=== PATIENT | female | born 1995 | race Caucasian/White ===

== ENCOUNTER 2020-05-30 11:54 | Emergency (ER) | payer OTHER, SELFPAY ==
--- NOTE | ~2020-05-30 | XR_ITS ---
EXAMINATION: XR chest 1V portable DATE: 05/30/2020 13:38 INDICATION: Cough and shortness of breath TECHNIQUE: frontal view of the chest was obtained. COMPARISON: None FINDINGS: The lungs are clear with no focal airspace opacities, pulmonary edema, pleural effusion or pneumothor ax. The cardiomediastinal silhouette is normal. Visualized bones and soft tissues are unremarkable. IMPRESSION: 1. No acute cardiopulmonary disease. Reviewed, dictated and finalized at location A.
[2020-05-30 11:56] VITALS: BP 112/87; PULSE 84; RESP 18; TEMP 36.9; O2SAT 100
[2020-05-30] MEDS: LORazepam (*CRX) 1 MG TABLET PO (13:22)
--- NOTE | 2020-05-30 13:56 | ED.GENADULT ---
HPI - General Adult General Chief complaint: Upper Respiratory Infection Stated complaint: SOB Time Seen by Provider: 05/30/20 12:20 Source: patient and family Mode of arrival: ambulatory Limitations: no limitations History of Present Illness HPI narrative: Patient is a 24-year-old female who presents to emergency department for evaluation of upper respiratory symptoms that began over the last 24 hours with congestion rhinorrhea nonproductive cough and feeling short of breath patient denies fever vomiting diarrhea patient started a new job the day that she began to feel ill patient has not been vaccinated or had COVID-19 on arrival patient in no distress patient does note severe anxiety and states she is also very anxious at this time Related Data Home Medications Medication Instructions Recorded Confirmed desvenlafaxine succinate mg PO 05/30/20 lamotrigine 05/30/20 Allergies Allergy/AdvReac Type Severity Reaction Status Date / Time Penicillins Allergy Hives Verified 05/30/20 12:22 Review of Systems Review of Systems: All systems reviewed & are unremarkable except as noted in HPI and below PMFSH Past Medical History Medical History (Updated 05/30/20 @ 14:01 by Jack Penaloza PA-C) Anxiety Depression Social History Social History (Updated 05/30/20 @ 13:59 by Jack Penaloza PA-C) Smoking status: Never smoker Gender identity (if verbalized by the patient): Female Exam Narrative: Exam Narrative: GENERAL: Well-appearing, well-nourished, and in no acute distress. HEAD: Normocephalic, atraumatic. EYES: PERRLA and EOMI. ENT: Nares clear, no rhinorrhea or epistaxis. Mucous membranes moist. CHEST: Clear to auscultation. No respiratory distress. No wheezes rales or rhonchi HEART: Regular rate and rhythm. No murmur heard. Normal peripheral pulses. EXTREMITIES: Normal range of motion. No edema. SKIN: Warm, dry, no rash. NEURO: No focal deficits. Alert and oriented x3. Cranial nerves II through XII grossly intact PSYCH: Normal mood and affect. Course Course Emergency Course: Patient in the room no distress hemodynamically stable normal vital signs no hypoxemia sick for less than a day no pneumonia on chest x-ray will be tested for Covid will follow with her primary care to get the results noting that she is aware that primary care is the only one that can get the results for her given reasons to return Vital Signs Vital signs: Vital Signs Temperature 98.5 F 05/30/20 11:56 Pulse Rate 84 05/30/20 11:56 Respiratory Rate 18 05/30/20 11:56 Blood Pressure 112/87 05/30/20 11:56 Pulse Oximetry 100 05/30/20 11:56 Temperature 98.5 F 05/30/20 11:56 Pulse Rate 84 05/30/20 11:56 Respiratory Rate 18 05/30/20 11:56 Blood Pressure 112/87 05/30/20 11:56 Pulse Oximetry 100 05/30/20 11:56 Medical Decision Making MDM Narrative Medical decision making narrative: Patient with upper respiratory infection no distress felt appropriate for outpatient reevaluation patient agrees with this plan will be discharged Vital Signs Vital Signs: Vital Signs Temperature 98.5 F 05/30/20 11:56 Pulse Rate 84 05/30/20 11:56 Respiratory Rate 18 05/30/20 11:56 Blood Pressure 112/87 05/30/20 11:56 Pulse Oximetry 100 05/30/20 11:56 Temperature 98.5 F 05/30/20 11:56 Pulse Rate 84 05/30/20 11:56 Respiratory Rate 18 05/30/20 11:56 Blood Pressure 112/87 05/30/20 11:56 Pulse Oximetry 100 05/30/20 11:56 Imaging Data Radiologist's impression: ITS Impressions Chest X-Ray 05/30/20 13:39 IMPRESSION: 1. No acute cardiopulmonary disease. Discharge Plan Discharge Clinical Impression: Upper respiratory infection Patient Disposition: Home, Self-Care Condition: Stable Instructions: Antibiotic Form, COVID-19 (Coronavirus Disease 2019) (ED) Additional Instructions: Follow up with your primary care provider within 2 days set up for ree
[2020-05-30 14:35] VITALS: BP 104/78; PULSE 89; RESP 18; O2SAT 100
[2020-05-31 01:17] LABS: SARS-CoV-2 RNA PCR Negative
== END 2020-05-30 14:35 | disposition home or self-care (01) ==
PROVIDERS: Emergency Medicine Emergency Medical Services; Emergency Provider Emergency Medicine; PCP Family Medicine
DX: J06.9 Acute upper respiratory infection, unspecified (principal); Z20.822 Contact with and (suspected) exposure to COVID-19; F41.9 Anxiety disorder, unspecified; F32.9 Major depressive disorder, single episode, unspecified
CPT/HCPCS: 71045; 99283; A9270; C9803; U0003; U0005

== ENCOUNTER 2020-12-07 20:08 | Emergency (ER) | payer OTHER, SELFPAY ==
--- NOTE | ~2020-12-07 | XR_ITS ---
EXAMINATION: XR chest 2V 12/07/2020 20:32 INDICATION: Chest pain PROCEDURE: 2 view chest COMPARISON: 05/30/2020 FINDINGS: The lungs are clear. The cardiomediastinal silhouette is within normal limits. There are no pleural effusions. There is no pneumothorax suspected. IMPRESSION: 1: NO ACUTE CARDIOPULMONARY DISEASE. Reviewed, dictated and finalized at location A.
--- NOTE | 2020-12-07 20:13 | ECG_ITS ---
Measurements Intervals Sigurd Rate: 94 P: 68 WY: 159 QRS: 50 QRSD: 84 T: 61 QT: 338 QTc: 423 Interpretive Statements SINUS RHYTHM INCOMPLETE RIGHT BUNDLE BRANCH BLOCK BASELINE ARTIFACT- I, II, III, AVR, AVL BORDERLINE ECG Electronically Signed On 12-07-2020 22:59:49 CDT by Armaan Vanegas D.O.
[2020-12-07 20:17] VITALS: BP 129/87; PULSE 98; RESP 14; TEMP 36.7; O2SAT 100
[2020-12-07 20:50] LABS: Basophils Absolute Auto 0.1 K/mm3 (0.0-0.1); Basophils Percent Auto 0.7 % (0.2-1.2); Eosinophils Absolute Auto 0.2 K/mm3 (0-0.3); Eosinophils Percent Auto 2.6 % (0-4.4); Hemoglobin 13.4 g/dL (12.0-15.0); Immature Granulocyte Absolute 0.01 K/mm3 (0.00-0.031); Immature Granulocyte Percent A 0.1 % (0-0.5); Lymphocytes Absolute Auto 2.84 K/mm3 (0.9-3.2); Lymphocytes Percent Auto 38.5 % (18.3-44.2); Mean Corpuscular HGB Conc 32.7 g/dl (32-36); Mean Corpuscular Hemoglobin 30.2 pg (26-34); Mean Corpuscular Volume 92.3 fl (80-100); Mean Platelet Volume 9.6 fl (7.4-10.4); Monocytes Absolute Auto 0.4 K/mm3 (0.1-0.6); Monocytes Percent Auto 5.8 % (2.6-8.5); Neutrophils Absolute Auto 3.9 K/mm3 (1.3-6.7); Neutrophils Percent Auto 52.3 % (45.5-73.1); Platelet Count Result 260 k/mm3 (150-375); Red Blood Count 4.44 M/mm3 (4.2-5.4); Red Cell Distribution Width 12.6 % (11.5-14.5); White Blood Count 7.4 K/mm3 (4.5-10.0)
[2020-12-07 20:59] LABS: Prothrombin Time 12.6 Seconds (11.1-14.7)
[2020-12-07 21:00] LABS: Partial Thromboplastin Time 28.1 SECONDS (22.3-36.8)
[2020-12-07 21:07] LABS: Blood Urea Nitrogen 12 mg/dL (7-17); Calcium 9.3 mg/dL (8.4-10.2); Carbon Dioxide 28 mmol/L (22-30); Chloride 103 mmol/L (98-107); Estimated CRCL calculation 78 ml/min; Estimated Glomerular Filt Rate > 60; Glucose 97 mg/dL (65-110); Potassium 3.9 mmol/L (3.4-5.0)
[2020-12-07 21:12] LABS: Troponin I < 0.012 ng/mL (0.000-0.034)
[2020-12-07 21:17] LABS: Anion Gap 7 mmol/L (8-16); Sodium 138 mmol/L (137-145)
--- NOTE | 2020-12-07 22:28 | ED.CHESTPAIN ---
HPI - Chest Pain General Chief Complaint: Chest Pain Stated Complaint: Chest and side pain Time Seen by Provider: 12/07/20 22:23 Source: patient Mode of arrival: ambulatory Limitations: no limitations History of Present Illness HPI narrative: Patient is a 35-year-old female complaining of bilateral rib pain accompanied by chest pain, across her chest, worse with movement and deep inspiration, 8 out of 10, sharp, nonradiating started today. Patient denies any shortness breath, abdominal pain, nausea, vomiting, diaphoresis, fever or chills. Patient denies any injury to the area. Related Data Home Medications Medication Instructions Recorded Confirmed desvenlafaxine succinate mg PO 05/30/20 lamotrigine 05/30/20 Allergies Allergy/AdvReac Type Severity Reaction Status Date / Time Penicillins Allergy Hives Verified 05/30/20 12:22 Review of Systems Review of Systems: All systems reviewed & are unremarkable except as noted in HPI and below Constitutional: Constitutional: Denies body ache(s), Denies chills, Denies excessive sweating, Denies fatigue, Denies fever(s), Denies headache(s), Denies lethargy, Denies malaise, Denies weakness and Denies weight loss Eyes: Eyes: Denies blurry vision, Denies change in vision and Denies loss of vision ENT: Denies dizziness, Denies ear discharge, Denies headache(s), Denies lip swelling, Denies epistaxis, Denies nasal congestion, Denies neck pain, Denies throat swelling and Denies tongue swelling Cardiovascular: Cardiovascular: Denies diaphoresis, Denies rapid heart rate, Denies edema, Denies irregular heart rhythm, Denies lightheadedness, Denies palpitations, Denies dyspnea and Denies dyspnea on exertion Respiratory: Respiratory: Denies chest congestion, Denies cough, Denies hemoptysis, Denies dyspnea and Denies dyspnea on exertion Gastrointestinal: Gastrointestinal: Denies abdominal pain, Denies melena, Denies hematochezia, Denies diarrhea, Denies nausea, Denies vomiting and Denies hematemesis Musculoskeletal: Musculoskeletal: Denies abnormal gait, Denies deformity, Denies joint swelling, Denies limited range of motion, Denies neck pain and Denies numbness Neurologic: Denies Abnormal speech present, Denies abnormal gait, Denies confusion, Denies dizziness, Denies headache(s), Denies focal weakness, Denies loss of vision, Denies numbness, Denies Other visual disturbances, Denies Sensory deficit (Neuro) and Denies weakness Psychiatric: Psychiatric: Denies confusion, Denies depression, Denies auditory hallucinations, Denies homicidal ideation and Denies suicidal ideation Endocrine: Endocrine: Denies cold intolerance, Denies excessive sweating, Denies fatigue, Denies heat intolerance and Denies palpitations Hematologic/Lymphatic: Hematologic/Lymphatic: Denies easy bleeding and Denies easy bruising Allergic/Immunologic: Allergic/Immunologic: Denies lip swelling, Denies throat swelling and Denies tongue swelling PMFSH Past Medical History Medical History Anxiety Depression Social History Social History Smoking status: Never smoker Gender identity (if verbalized by the patient): Female Exam Const: General: cooperative, healthy appearing, comfortable, no acute distress, well developed, alert and awake; No confusion Orientation/consciousness: oriented to person, oriented to place, oriented to time, patient oriented x3 and No confusion Limitations: no limitations HENMT: Head: normal to inspection, normocephalic and atraumatic Ears: hearing grossly normal bilaterally, TM normal on the right and TM normal on the left General nose exam: Normal external nose present, Normal nares present and No nasal discharge present Face and sinus: normal facial exam Mouth: Yes Normal oral and palatal mucosa present, Yes lip normal, Yes tongue normal and Yes oropharynx normal Throat: posterior
[2020-12-07 22:29] VITALS: BP 131/98; PULSE 85; RESP 17; O2SAT 99
[2020-12-07 23:32] LABS: D Dimer 0.31 ug/mL (<0.48)
[2020-12-08 00:06] VITALS: BP 126/89; PULSE 79; RESP 16; O2SAT 98
== END 2020-12-08 00:28 | disposition home or self-care (01) ==
PROVIDERS: Emergency Medicine; Emergency Provider Emergency Medicine; PCP Family Medicine
DX: R07.89 Other chest pain (principal); F41.9 Anxiety disorder, unspecified; F32.A Depression, unspecified; I45.10 Unspecified right bundle-branch block
CPT/HCPCS: 36415; 71046; 80048; 84484; 85025; 85380; 85610; 85730; 93005; 99284

== ENCOUNTER 2021-05-01 12:52 | Emergency (ER) | payer OTHER, SELFPAY ==
--- NOTE | ~2021-05-01 | XR_ITS ---
XR knee RT min 4V 05/01/2021 13:32 INDICATION: Right knee pain PROCEDURE: 4 views right knee COMPARISON: No prior studies for comparison. FINDINGS: Fracture, dislocation or subluxation is not identified. The soft tissues appear within norm al limits. No foreign bodies are identified. IMPRESSION: 1: NO ACUTE BONE OR JOINT ABNORMALITY IDENTIFIED. Reviewed, dictated and finalized at location A.
--- NOTE | 2021-05-01 13:05 | ED.GENADULT ---
HPI - General Adult General Chief complaint: Extremity Injury, Lower Stated complaint: rt knee pain Time Seen by Provider: 05/01/21 13:05 Source: patient Mode of arrival: ambulatory Limitations: no limitations History of Present Illness HPI narrative: 25-year-old female patient presents to the [facility] with complaints of right knee pain. Patient states that she was walking yesterday and felt some crackling to her right knee and started having some pain. Patient states when she got home was going up and down some stairs she felt a pop and instantly started having some numbness and tingling that radiated down to the leg and the foot. Patient states she has been icing it, taking Aleve, elevating it and wrapping it with an Ced wrap. Patient states she is not able to fully extend her knee on the right side. Patient states pain is 7 out of 10 at this time. Related Data Home Medications Medication Instructions Recorded Confirmed desvenlafaxine succinate 100 mg PO DAILY 05/30/20 05/01/21 lamotrigine 100 mg PO DAILY 05/30/20 05/01/21 dextromethorphan-quinidine 1 cap PO BID 05/01/21 05/01/21 [Nuedexta] Allergies Allergy/AdvReac Type Severity Reaction Status Date / Time Penicillins Allergy Hives Verified 05/01/21 13:15 Review of Systems Review of Systems: CONSTITUTIONAL: Denies fever, chills, or sweats. EYES: Denies visual changes, redness, or discharge. ENT: Denies rhinorrhea, congestion, sore throat, or otalgia. CARDIOVASCULAR: Denies chest pain, palpitations, or edema. RESPIRATORY: Denies cough or dyspnea. GASTROINTESTINAL: Denies abdominal pain, nausea, vomiting, or diarrhea. GENITOURINARY: Denies dysuria or hematuria. SKIN: Denies rash or itching. MUSCULOSKELETAL: Denies back pain, joint pain, or myalgia. Positive right knee pain NEUROLOGIC: Denies headache, numbness, or weakness. PSYCHIATRIC: Denies anxiety or depression. [facility] Past Medical History Medical History Anxiety Depression Family History Family History Father Heart disease Depression Sibling ADHD Grandparent Breast cancer Heart disease Social History Social History Smoking status: Never smoker Second hand tobacco smoke exposure: No Alcohol intake: never Substance use: unknown Gender identity (if verbalized by the patient): Female Comments At the time of my signature I agree with nursing past medical history, surgical, social, and family history. There is no relevant family history pertinent to the presenting complaint. Exam Narrative: GENERAL: Well-appearing, well-nourished, and in no acute distress. HEAD: Normocephalic, atraumatic. EYES: PERRLA and EOMI. ENT: Nares clear, no rhinorrhea or epistaxis. Mucous membranes moist. NECK: Supple. No lymphadenopathy CHEST: Clear to auscultation. No respiratory distress. HEART: Regular rate and rhythm. No murmur heard. Normal peripheral pulses. ABDOMEN: Soft, nontender, nondistended, normal active bowel sounds. EXTREMITIES: Patient is able to bear weight and ambulate but has extreme pain pain. No surface trauma, STS, or obvious effusion. No overlying erythema or warmth. The R knee is without obvious asymmetry or deformity when compared to the R/L knee. Patient is able to do deep knee bend with symmetry, fully extend knee, internal and external rotation. No tendernss to palpation of the patella, no effusion or ballottement. No tenderness over the infrapatellar tendon. tenderness over the lateral joint and the lateral tibial plateaus. no tenderness over the proximal fibular head. no tenderness, fullness, or mass of the popliteal fossa. No quadriceps tenderness. No laxity of the ACL, PCL, MCL, or LCL. No collateral ligament laxity to valgus or vargus stress. Negative clemente/drawer sign. Negative Marlyn. Negative Apley compressio
[2021-05-01 13:07] VITALS: BP 115/78; PULSE 99; RESP 18; TEMP 36.9; O2SAT 99
== END 2021-05-01 13:50 | disposition home or self-care (01) ==
PROVIDERS: Emergency Provider Nurse Practitioner Family
DX: M25.561 Pain in right knee (principal); F32.A Depression, unspecified
CPT/HCPCS: 73564; 99213; G0463; L1830

== ENCOUNTER 2021-08-19 11:00 | Outpatient (RCR) | payer OTHER, SELFPAY ==
--- NOTE | 2021-06-25 13:57 | PTOPEVAL ---
PHYSICAL THERAPY INITIAL EVALUATION. Thank you for referring Coleen Carr to [facility].? The patient is scheduled to be seen for therapy? 2x/week for 4 weeks. Please review, sign, date and return this plan of care ROBBY. I agree with and certify that the following plan of care is medically necessary. Referring Physician Date Attending Provider: Rufino Horvath APN *PT Outpatient Evaluation Start: 06/25/21 Evaluation Information Diagnosis Patellofemoral pain Onset ~2 month Additional Evaluation Detail Pt ambulates into the clinic using leslye axillary crutches without bearing any weight through her R LE. Subjective Information Pt states she was walking at Query Text:As Reported By Patient/ work when her knee popped out Family of place. Her x-rays at urgent care after this were negative . She is now 2 months out and does not put any weight through her RLE. She states she cannot stand for long periods of time. Pt states she booty scoots up/down the stairs to her room. Diagnostic Tests X-Rays For This Problem Yes: negative Pain Assessment Right Knee(s) Reported Pain Level 4 Pain Description Crushing Pain Frequency Acute,Intermittent Lowest Pain Intensity 0 Greatest Pain Intensity 8 Pain Aggravating Factors Prolonged Position,Stair Climbing,Walking Lower Extremity Range of Motion General Lower Extremity Range of Motion WFL/Left,WFL/Right Knee Range of Motion Right Knee Flexion Range of Motion - Active 110 Knee Flexion Range of Motion - Passive 140 Knee Extension Range of Motion - Active -4 Knee Range of Motion Comments L knee 0-140 Lower Extremity Muscle Strength Testing Gross Lower Extremity Strength R knee extension 4-/5 R knee flexion 4/5 R hip flexion 4/5 L LE grossly 4+/5 Palpation Assessment Palpation lateral border of the patella Knee Special Tests Salome's Negative Right Anterior Drawer Negative Right Posterior Drawer Negative Right Valgus Stress Test Knee at 0 Degrees Negative Right Valgus Stress Test Knee at 30 Degrees Negative Right Varus Stress Test Knee at 0 Degrees Negative Right Varus Stress Test Knee at 30 Degrees Negative Right Patellofemoral Compression/Grind Test Positive Right Patellofemoral Apprehension Test Positive Right Balance Assessment Jaylon
--- NOTE | 2021-07-23 16:11 | PTOPEVAL ---
PHYSICAL THERAPY PROGRESS REPORT. Thank you for referring Coleen Carr to [facility].? The patient is scheduled to be seen for therapy? 1x/week for 4 weeks. Please review, sign, date and return this plan of care ROBBY. I agree with and certify that the following plan of care is medically necessary. Referring Physician Date Attending Provider: Rufino Horvath APN Evaluation Information Diagnosis Patellofemoral pain Onset ~2 month Subjective Information Pt states she was doing well Query Text:As Reported By Patient/ until she went back to work. Family At work, with modifications, she has to sit for 5hrs without much time or space to stand up and stretch her legs out. She also reports crackling in her knee. Pain Assessment Self Report Pain Assessment Right Knee(s) Reported Pain Level 3 Greatest Pain Intensity 8 Lower Extremity Range of Motion General Lower Extremity Range of Motion WFL/Left,WFL/Right Knee Range of Motion Right Knee Flexion Range of Motion - Active 138 Knee Flexion Range of Motion - Passive 140 Knee Extension Range of Motion - Active 0 Knee Range of Motion Comments L knee 0-140 Lower Extremity Muscle Strength Testing Gross Lower Extremity Strength R knee extension 4/5 R knee flexion 4+ /5 R hip flexion 4/5 L LE grossly 4+/5 Palpation Assessment Palpation medial knee joint line. Decreased lateral patellar glide and decreased superior/ inferior mobility Knee Special Tests Salome's Negative Right Anterior Drawer Negative Right Posterior Drawer Negative Right Valgus Stress Test Knee at 0 Degrees Negative Right Valgus Stress Test Knee at 30 Degrees Negative Right Varus Stress Test Knee at 0 Degrees Negative Right Varus Stress Test Knee at 30 Degrees Negative Right Patellofemoral Compression/Grind Test Positive Right Patellofemoral Apprehension Test Positive Right Balance Assessment Timed Up and Go Test (TUG) (Seconds) 10 Assistive Devices None,Crutches, Axillary Comments Initially: 16s, Partial weight bearing on R LE 07/23/21: 10s, without use of AD 5 Time Sit to Stand Time in Seconds 15 5 Time Sit to Stand Comments Initially: 17s, Without the Query Text:Normative Data: If Greater use of UEs, RLE placed Than 15 Seconds, 74% Increase Risk for anteriorly with a lateral Recurrent Falls weight shift to the left 07/23/21: 15s, RLE placed
--- NOTE | 2021-08-19 11:47 | PTOPEVAL ---
PHYSICAL THERAPY PROGRESS REPORT AND DISCHARGE SUMMARY. Thank you for referring Coleen Carr to [facility].? The patient is to be discharged from skilled physical therapy services at this time. Please review, sign, date and return this plan of care ROBBY. I agree with and certify that the following plan of care is medically necessary. Referring Physician Date Attending Provider: Rufino Horvath APN Evaluation Information Diagnosis Patellofemoral pain Onset ~2 month Subjective Information Pt states her knee is doing Query Text:As Reported By Patient/ fine. She states she is doing Family her exercises less than she should be. Pt states her knee still hurts when she steps weird. She declines pain on the stairs, walking, or standing for prolonged periods of time. Pain Assessment Right Knee(s) Reported Pain Level 2 Greatest Pain Intensity 5 Lower Extremity Range of Motion General Lower Extremity Range of Motion WFL/Left,WFL/Right Knee Range of Motion Right Knee Flexion Range of Motion - Active 140 Knee Flexion Range of Motion - Passive 140 Knee Extension Range of Motion - Active 0 Knee Range of Motion Comments L knee 0-140 Lower Extremity Muscle Strength Testing Gross Lower Extremity Strength leslye hip flexion 5/5 leslye knee flexion/extension 5/5 - no pain with max resistance - full functional squat without deviations Palpation Assessment Palpation no tenderness press Balance Assessment Time Up Go (TUG) Assistive Devices None,Crutches, Axillary Comments Initially: 16s, Partial weight bearing on R LE 07/23/21: 10s, without use of AD 08/19/21: 8s, without the use of AD 5 Time Sit to Stand 5 Time Sit to Stand Comments Initially: 17s, Without the Query Text:Normative Data: If Greater use of UEs, RLE placed Than 15 Seconds, 74% Increase Risk for anteriorly with a lateral Recurrent Falls weight shift to the left 07/23/21: 15s, RLE placed posterior to LLE 08/19/21: 13s, equal weight distribution Gait Assessment Ambulation Assistive Devices None Gait Pattern Assessment Gait Pattern No Deviations/Normal Other Gait Observations decreased gait speed 2 Minute Walk 2 Minute Walk Test Comments initially: 238ft (1.98ft/sec) With Leslye axillary crutches
== END 2021-08-19 14:57 | disposition home or self-care (01) ==
LOC: ANHPT 11:00
PROVIDERS: PCP Physician Assistant; Visit Provider Nurse Practitioner
DX: M25.561 Pain in right knee (principal)
CPT/HCPCS: 97110; 97112; 97116; 97161; 97530

== ENCOUNTER 2021-08-31 12:29 | Outpatient (CLI) | payer SELFPAY ==
--- NOTE | ~2021-08-31 | XR_ITS ---
XR chest 2V DATE: 08/31/2021 13:17 INDICATION: Tietze syndrome. Sternal chest pain. Costochondral junction pain. TECHNIQUE: PA and lateral views COMPARISON: 12/07/2020 PA and lateral chest FINDINGS: Normal heart size. No hilar or mediastinal enlargement. No pulmonary infiltrate or consolid ation, pleural effusion or pulmonary vascular congestion or pneumothorax. IMPRESSION: Negative Reviewed, dictated and finalized at location B. IMPRESSION: Negative
== END 2021-08-31 12:30 | disposition home or self-care (01) ==
PROVIDERS: PCP Physician Assistant; Visit Provider Physician Assistant
DX: N94.0 Mittelschmerz (principal)
CPT/HCPCS: 71046

== ENCOUNTER 2024-09-12 10:06 | Outpatient (CLI) | payer BC, SELFPAY ==
[2024-09-25 18:07] VITALS: BMI 22.7
--- NOTE | 2024-09-25 18:07 | P.SLEEP_ITS ---
Sleep Study - Home Unattended Date of Study: 09/12/24 Ordering Provider: Manjinder Quintanilla APRN Interpreting Provider: Frances Webb, DO Home Sleep Study Type: Watch PAT Height: 1.7 m Weight: 65.771 kg Body Mass Index: 22.7 Neck Circumference (inches): 13.5 [facility]: 0 Reason for Sleep Study Trouble falling and staying asleep Sleep History The patient is a 28-year-old female that had a sleep study ordered by the pulmonary group for evaluation of sleep apnea. The patient admits to excessive daytime sleepiness, trouble falling asleep, and trouble staying asleep. She denies snoring loudly. She denies interruptions in breathing while asleep. She denies choking or gasping at night. She denies having trouble breathing on her back. She does have morning headaches. She does have a dry or sore mouth/throat in the morning. She denies nocturnal heartburn. She denies nocturia. She does have difficulty returning to sleep if she wakes up throughout the night. She does use hypnotics or sedatives. She denies feeling anxious about sleep. She does feel tired or sleepy during the day. She does feel tired in the morning. She denies having the urge to fall asleep during the day. She denies feeling drowsy while driving. She denies sleep paralysis, cataplexy, and hypnagogic/hypnopompic hallucinations. She does clench or grind her teeth. She denies kicking or jerking her legs excessively. She does have a restless feeling in her legs. The restless feeling does not cause the urge to move her legs. It does not get worse with rest or better with activity. It is worse in the evening or at nighttime. It does cause a disturbance in her sleep. She goes to bed at 10 p.m. on workdays and at 11 p.m. on her days off. It takes her 45 minutes to fall asleep. She gets 6 hours of sleep per night. Her sleep is somewhat restorative on days off. She denies taking any planned naps. She denies dream enactment behavior. She denies sleepwalking. She consumes 1 to 2 cups of a caffeinated beverage per day. She denies tobacco and alcohol use. She denies exercising on a regular basis. [facility] Past Medical History Medical History BMI 24.0-24.9, adult PTSD (post-traumatic stress disorder) Depression Anxiety Family History Family History Father Heart disease Depression Hypertension Sibling ADHD Grandparent Breast cancer Heart disease Cervical cancer Mother No problems noted. Social History Social History Smoking status: Never smoker Second hand tobacco smoke exposure: No Alcohol intake: never Substance use: never Substance use type: does not use Do You Feel Safe in your Home?: Yes Lack of Transportation: No Lack of Food: Never True Current Housing: I Have Housing Concerned About Future Housing: No Difficulty Paying Gas/Electric Bills: No Difficulty Paying for Meds: No Currently Unemployed: No Education: Bachelor's Degree Difficulty w/ Childcare or Family Care: No Living arrangements: with family Occupation/Education: occupation Additional occupation/education comments: [employer] Gender identity (if verbalized by the patient): Female Medications Home Medications ?Medication ?Instructions ?Recorded ?Confirmed ?Type desvenlafaxine succinate 100 mg 100 mg PO DAILY 05/30/20 07/18/24 History tablet,extended release 24 hr lamotrigine 100 mg tablet 100 mg PO DAILY 05/30/20 07/18/24 History Goji howard PO 05/30/24 07/18/24 History Iron PO 05/30/24 07/18/24 History Vitamin B12 PO 05/30/24 07/18/24 History lactobacillus combination no.4 3 3,000 mmu cells PO DAILY 05/30/24 07/18/24 History billion cell capsule (Probiotic) lorazepam 0.5 mg tablet 0.5 mg PO ONCE PRN 05/30/24 07/18/24 History norethindrone acetate 1 mg-ethinyl 1 tablet PO DAILY 05/30/24 07/18/24 History estradiol 20 mcg tablet eszopiclone 1 mg tablet 1 mg PO ONCE #1 tablet 07/18/24 07/18/24 Rx Sleep Procedure The sleep study was completed using WatchPAT a technically adequate device with seven channels: peripheral arterial tone, actigraphy, body position, snore, respiratory movement, pulse oximetry, sleep staging, and heart rate. Prior to using the device, the patient received verbal and written instructions for its application and was provided with the help desk phone number for additional telephonic instruction with 24-hour availability of qualified personnel to answer questions. The study was scored using CMS guidelines. Sleep Architecture The total recording time is 8 hrs, 10 min. The total sleep time is 7 hrs, 16 min. Sleep latency is 22 minutes. REM latency is 62 minutes. The patient had 7 episodes of waking. Sleep architecture shows 12.7% deep sleep, 66.6% light sleep, and (as % Total Sleep Time) showed NREM (Light 66.6%; Deep 12.7%), and a 20.6% stage REM. The patient spent 81.9% of total sleep time in the supine position. Sleep efficiency was 88.98. Respiratory Analysis The overall AHI (pAHI 4%:) is 0.7. The overall AHI (pAHI 3%:) is 3.6. The central AHI is 0.3. The AHI was 3.1 in NREM and 5.4 in REM sleep. The AHI was 3.5 in Supine and N/A in Non-supine sleep. Percent of Benny Richardson respirations is 0.0. Oximetry Data The oxygen desaturation index (MARGUERITE 4%:) is 0.7. The mean saturation is 96%, and the lowest saturation is 94%. Time spent with saturation < 88% is 0.0 minutes. Snoring Profile Snoring average intensity is 41 dB. The patient snored above 45 decibels for 6.2 minutes, 1.4% of sleep time. Cardiac Profile The average pulse rate is 77 beats per minutes. The lowest pulse rate is 63 bpm. The highest pulse rate reported is 108 bpm. Atrial fibrillation was not suspected. Premature beats occur <0.1 per minute. Assessment and Plan Assessment and Plan (1) Sleep disturbances: Code(s): G47.9 - Sleep disorder, unspecified Status: Acute Assessment and Plan: The patient had an overall AHI of 0.7 with desaturation down to 94%. This is not consistent with sleep-disordered breathing. If there is further concern for a sleep disorder, I recommend that the patient have a split study with the use of a hypnotic to ensure we obtain enough sleep data. Data The data obtained during this sleep study is adequate for interpretation. Certification This sleep study has been reviewed by a board certified sleep medicine physician.
== END 2024-09-13 10:37 | disposition home or self-care (01) ==
LOC: ANHCSM 10:14
PROVIDERS: PCP Family Medicine; Visit Provider Nurse Practitioner Family
DX: G47.9 Sleep disorder, unspecified (principal)
CPT/HCPCS: 95800

== ENCOUNTER 2024-11-01 08:55 | Emergency (ER) | payer BC, SELFPAY ==
--- OUTSIDE RECORDS SUMMARY | 2024-11-01 08:58 | XMS_ITS | Clinical Summary ---
Author Organization [facility] Office Center Address [address] [place] [address] Care Team Providers Care Contract Associate Name Role Phone Quentin Lei MD Primary Care Provider [phone] Allergies Active Allergy Reactions Criticality Noted Date Comments Penicillin V Potassium Rash Medium 08/09/2018 Medications lamoTRIgine (LaMICtal) 100 mg tablet 1 tablet daily 0 9 Active desvenlafaxine ER (PRISTIQ, KHEDEZLA) 100 mg 24 hr tablet Take 1 tablet by mouth daily 0 9 Active albuterol HFA (PROVENTIL HFA,VENTOLIN HFA,PROAIR HFA) 90 mcg/actuation inhaler INHALE 2 PUFFS BY MOUTH FOUR TIMES DAILY NEEDED FOR SHORTNESS OF BREATH OR WHEEZING 1 Active Nuedexta 20-10 mg capsule Take 1 capsule by mouth 2 (two) times a day 1 Active Lo Loestrin Fe 1 mg-10 mcg (24)/10 mcg (2) tablet Take 1 tablet by mouth daily 1 Active methylPREDNISol one (MEDROL DOSEPACK) 4 mg DosepackIndicat ions:Bilateral hand pain Take as directed on package. 21 tablet 1 Active naproxen (NAPROSYN) 500 mg tablet TAKE 1 TABLET(500 MG) BY MOUTH TWICE DAILY NEEDED FOR PAIN 60 tablet 2 Active Active Problems Problem Noted Date Diagnosed Date Fatigue 08/24/2020 Menorrhagia with irregular cycle 08/24/2020 Bipolar 1 disorder 08/24/2020 Immunizations Immunization Administration Dates Next Due Influenza, Unspecified 12/02/2020,2019(Deferred: Patient Refused) [place] SARS-CoV-2 Monovalen t Vaccination (12+ YRS) 08/05/2020,07/08/2020 Surgical History Surgery Date Site/Laterality Comments WISDOM TOOTH EXTRACTION 02/13/2015 - 02/13/2016 Family History Medical History Relation Name Comments Heart disease Father Valve in heart mutated- had surgery Ovarian cancer Maternal Grandmother No Known Problems Mother No Known Problems Sister 1 Maranda No Known Problems Sister 2 Relation Name Status Comments Father Alive Maternal Grandmother Mother Alive Sister 1 Maranda Alive Sister 2 Alive Social History Tobacco Use Types Packs/Day Years Used Date Smoking Tobacco: Never Smokeless Tobacco: Never Alcohol Use Standard Drinks/Week Comments Never 0 (1 standard drink = 0.6 oz pur e alcohol) AUDIT-C Answer Date Recorded Q1: How often do you have a drink containing alc ohol? Never 08/24/2020 Average Number of Drinks Not on file 021 Q3: How often do you have si x or more drinks on one occasion? Never 08/24/2020 PHQ-2 Answer Date Recorded PHQ-2 Total Score (If total score is 3 or more points, staff should administer the PHQ-9) 0 01/27/2021 Personal Safety Answer Date Recorded Getting School Help Needed Not on file 04/15 Comments Unknown Sex and Gender Information Value Date Recorded Sex Assigned at Not on file Legal Sex Female 12:11 AM SOCIOLOGY TEACHER Gender Identity Female 06/24/2024 8:18 PM CDT Sexual Orientation Choose not to disclose 2024 8:18 PM CDT Obstetrics History Last Filed Vital Signs Vital Sign Reading Time Taken Comments Blood Pressure 114/76 02/02/2021 1:05 PM SOCIOLOGY TEACHER Pulse 102 02/02/2021 1:05 PM SOCIOLOGY TEACHER Temperature 36.3 C (97.3 F) 02/02/2021 1:05 PM SOCIOLOGY TEACHER Respiratory Rate 18 02/02/2021 1:05 PM SOCIOLOGY TEACHER Oxygen Saturation 98% 02/02/2021 1:05 PM SOCIOLOGY TEACHER Inhaled Oxygen Concentration - - Weight 69.3 kg (152 lb 12.8 oz) 02/02/2021 1:05 PM SOCIOLOGY TEACHER Height 167.6 cm (5' 6) 02/02/2021 1:05 PM SOCIOLOGY TEACHER Body Mass Index 24.66 02/02/2021 1:05 PM SOCIOLOGY TEACHER Plan of Treatment Health Maintenance Due Date Last Done Comments Cervical Cancer Screening 1994 Hepatitis C Screening 1994 DTaP/Tdap/Td Vaccine (1 - Tdap) 2005 Varicella Vaccines (1 of 2 - 13+ 2-dose series) 11/21/2007 Hepatitis B Screening 2012 Regular Well Visit/Exam 18-64 2012 HPV Vaccines (1 - 3-dose SCD M series) 2021 Depression Screening 01/27/2022 01/27/2021, 12/09/2020 Covid-19 Vaccine (3 - 2024-2 6 season) 2024 08/05/2020, 07/08/2020 Influenza Vaccine (#1) 2024 12/02/2020 Pneumococcal vaccine <65 Aged Out No longer eligible based on patient's age to complete this topic [facility] H[facility] Care Teams Contract Associate Relationship Specialty Start Date End Date Quentin Lei MD PCP - General Family Medicine 08/09/18
[2024-11-01 09:05] VITALS: BP 104/74; PULSE 84; RESP 18; TEMP 36.2; O2SAT 100
--- NOTE | 2024-11-01 09:18 | ED.GENADULT ---
HPI - General Adult General Chief complaint: Nausea/Vomiting/Diarrhea Stated complaint: nausea/vertigo Time Seen by Provider: 11/01/24 09:17 Source: patient, RN notes reviewed and old records reviewed Mode of arrival: ambulatory Limitations: no limitations History of Present Illness HPI narrative: 28 year old female presents to [facility] with complaints of having nausea starting on Monday evening and has some dizziness when she moves her eyes too much. Patient reports no visual changes, no drainage from eyes or any photophobia. Patient reports that she has chronic sinus issues and has had increase in her sinus drainage and congestion and has been taking Benadryl, Flonase and also Aleve for her symptoms. Patient reports no fevers no vomiting or any diarrhea.Patient reports no pain at this time but continues with nausea today and general malaise. MD complaint: nausea, dizziness, sinus congestion and drainage Onset (ago): day(s) (3 days ago) Severity: moderate Treatments prior to arrival: other (Benadryl, Flonase, and Aleve) Related Data Home Medications ?Medication ?Instructions ?Recorded ?Confirmed ?Last Taken ?Type desvenlafaxine succinate 100 mg 100 mg PO DAILY 05/30/20 11/01/24 Unknown History tablet,extended release 24 hr lamotrigine 100 mg tablet 100 mg PO DAILY 05/30/20 11/01/24 Unknown History Goji howard PO 05/30/24 07/18/24 Unknown History Iron PO 05/30/24 07/18/24 Unknown History Vitamin B12 PO 05/30/24 07/18/24 Unknown History lactobacillus combination no.4 3 3,000 mmu cells PO DAILY 05/30/24 11/01/24 Unknown History billion cell capsule (Probiotic) lorazepam 0.5 mg tablet 0.5 mg PO ONCE PRN anxiety 05/30/24 11/01/24 Unknown History norethindrone acetate 1 mg-ethinyl 1 tablet PO DAILY 05/30/24 11/01/24 Unknown History estradiol 20 mcg tablet Allergies Allergy/AdvReac Type Severity Reaction Status Date / Time Penicillins Allergy Hives Verified 11/01/24 09:01 Review of Systems Review of Systems: CONSTITUTIONAL: Denies fever, chills, or sweats. EYES: Denies visual changes, redness, or discharge. ENT: Reports rhinorrhea, congestion,no sore throat, no otalgia. CARDIOVASCULAR: Denies chest pain, palpitations, or edema. RESPIRATORY: Denies cough or dyspnea. GASTROINTESTINAL: Denies abdominal pain, + nausea, no vomiting, or diarrhea. GENITOURINARY: Denies dysuria or hematuria. SKIN: Denies rash or itching. MUSCULOSKELETAL: Denies back pain, joint pain, or myalgia. NEUROLOGIC: Denies acute headache, numbness, or weakness, some dizziness PSYCHIATRIC: Positive for anxiety or depression. All systems reviewed & are unremarkable except as noted in HPI and below PMFSH Past Medical History Medical History BMI 24.0-24.9, adult PTSD (post-traumatic stress disorder) Depression Anxiety Family History Family History Father Heart disease Depression Hypertension Sibling ADHD Grandparent Breast cancer Heart disease Cervical cancer Mother No problems noted. Social History Social History Smoking status: Never smoker Second hand tobacco smoke exposure: No Alcohol intake: never Substance use: never Substance use type: does not use Do You Feel Safe in your Home?: Yes Lack of Transportation: No Lack of Food: Never True Current Housing: I Have Housing Concerned About Future Housing: No Difficulty Paying Gas/Electric Bills: No Difficulty Paying for Meds: No Currently Unemployed: No Education: Bachelor's Degree Difficulty w/ Childcare or Family Care: No Living arrangements: with family Occupation/Education: occupation Additional occupation/education comments: [employer] Gender identity (if verbalized by the patient): Female Comments At time of signature, agree with nursing past medical, surgical, social and family history. There is no relevant family history pertinent to the presenting complaint Exam Narrative: GENERAL: Well-appearing, well-nourished, and in no acute distress. HEAD: Normocephalic, atraumatic. EYES: PERRLA and EOMI.no nystagmus, no photophobia ENT: Nares clear,positive for rhinorrhea and feelings of congestion to sinuses no epistaxis. Mucous membranes moist. TM's normal with brisk light reflex, throat pink with no tonsil redness or enlargement NECK: Supple. no lymphadenopathy CHEST: Clear to auscultation. No respiratory distress. no cough noted SAO2 100% on room air HEART: Regular rate and rhythm. No murmur heard. Normal peripheral pulses. ABDOMEN: Soft, nontender, nondistended, normal active bowel sounds. EXTREMITIES: Normal range of motion. No edema. SKIN: Warm, dry, no rash. NEURO: No focal deficits. Alert and oriented x3. Course Course Emergency Course: Patient is aware of diagnosis, understands and agrees to treatment plan.? Anticipatory guidance given.? Patient agrees to follow-up as directed and is aware of reasons to seek care at the emergency department. Portions of this record may have been created with voice recognition software Level of Care: Express Care Visit Vital Signs Vital signs: Vital Signs Temperature 36.2 C L 11/01/24 09:05 Pulse Rate 84 11/01/24 09:05 Respiratory Rate 18 11/01/24 09:05 Blood Pressure 104/74 11/01/24 09:05 Pulse Oximetry 100 11/01/24 09:05 Oxygen Delivery Room Air 11/01/24 09:05 Temperature 36.2 C L 11/01/24 09:05 Pulse Rate 84 11/01/24 09:05 Respiratory Rate 18 11/01/24 09:05 Blood Pressure 104/74 11/01/24 09:05 Pulse Oximetry 100 11/01/24 09:05 Oxygen Delivery Room Air 11/01/24 09:05 Reviewed Medical Decision Making MDM Narrative Medical decision making narrative: Exam findings and imaging show no acute concerns or changes; patient is non-toxic appearing and is in no distress.? Patient is appropriate for outpatient treatment and follow-up Differential Diagnosis Differential Diagnosis: nausea, dizziness, viral syndrome, URI, sinus drainage, seasonal allergies Medical Records Medical records reviewed: Yes I reviewed the external patient's medical records. Vital Signs Vital Signs: Vital Signs Temperature 36.2 C L 11/01/24 09:05 Pulse Rate 84 11/01/24 09:05 Respiratory Rate 18 11/01/24 09:05 Blood Pressure 104/74 11/01/24 09:05 Pulse Oximetry 100 11/01/24 09:05 Oxygen Delivery Room Air 11/01/24 09:05 Temperature 36.2 C L 11/01/24 09:05 Pulse Rate 84 11/01/24 09:05 Respiratory Rate 18 11/01/24 09:05 Blood Pressure 104/74 11/01/24 09:05 Pulse Oximetry 100 11/01/24 09:05 Oxygen Delivery Room Air 11/01/24 09:05 reviewed Lab Data Lab results reviewed: Yes I reviewed the patient's lab results. Lab results narrative: covid antigen negative, Influenza A& B negative Labs: Lab Results 11/01/24 Range/Units 09:55 POC Influenza A Ag Negative (Negative) POC Influenza B Ag Negative (Negative) POC SARS CoV-2 Ag Negative (Negative) reviewed Critical Care Time Critical Care Time Critical Care Time: No Discharge Plan Discharge Clinical Impression: Acute viral syndrome Patient Disposition: Home Condition: Stable Instructions: Viral Syndrome (ED), Dizziness (ED) Additional Instructions: Increase fluids especially juices and water Zyrtec, Claritin or Adia daily Meclizine for dizziness as needed and ordered heat to the face 20-30 minutes 4-6 times a day for pain Salt water gargles, throat lozenges or throat sprays as desired Zofran for any nausea Clear liquids for the next 8-10 hours, then advance to a bland diet as tolerated A bland diet can consist of--BRAT diet which is bananas, rice, applesauce, and toast Avoid fried, greasy, fatty, fried foods Avoid caffeine, nicotine, and alcohol Return to your regular diet in the next 3-4 days Medication as directed for nausea and vomiting Follow-up with her PCP if continued problems or uncontrolled pain If your symptoms persist, change or worsen significantly before you can contact your personal physician then please, without delay, go to the emergency department for further evaluation. Follow-up with PCP in 7-10 days or sooner if needed Patient Language: Occitan Prescriptions: New ondansetron 4 mg tablet,disintegrating 4 mg PO Q6H PRN (Reason: nausea and vomiting) Qty: 20 0RF Rx Instructions: what ever preparation is covered by her insurance meclizine 25 mg tablet 25 mg PO BID PRN (Reason: dizziness) Qty: 20 0RF Rx Instructions: for dizziness No Action lorazepam 0.5 mg tablet 0.5 mg PO ONCE PRN (Reason: anxiety) Patient Comments: Takes half to 1 tablet PO TID PRN norethindrone ac-eth estradiol 1-20 mg-mcg tablet 1 tablet PO DAILY Iron 18 mg PO Vitamin B12 PO Goji howard PO Probiotic 3 billion cell capsule 3,000 mmu cells PO DAILY Rx Instructions: administer with a meal lamotrigine 100 mg tablet 100 mg PO DAILY desvenlafaxine succinate 100 mg tablet extended release 24 hr 100 mg PO DAILY Follow-up/Referrals: UNKNOWN,DOCTOR [Primary Care Provider] Stand Alone Forms: Work/School Release IP Time of Disposition: 09:55 Quality Teresa Coma Scale Eyes: Open Verbal: Oriented and Alert Motor: Follows Commands Whitmer Coma Total Score: 15
[2024-11-01 09:56] LABS: EDCOVIDSCREEN Negative (Negative); EDINFLUASCREEN Negative (Negative); EDINFLUBSCREEN Negative (Negative)
== END 2024-11-01 09:57 | disposition home or self-care (01) ==
PROVIDERS: Emergency Provider Registered Nurse
DX: B34.9 Viral infection, unspecified (principal); Z20.822 Contact with and (suspected) exposure to COVID-19; F41.9 Anxiety disorder, unspecified; F32.A Depression, unspecified
CPT/HCPCS: 87426; 87804; 99213; G0463